=== PATIENT | female | born 1950 | race Native Hawaiian/Other Pacific Islander ===

== ENCOUNTER 2017-09-09 10:42 | Outpatient (CLI) | payer OTHER ==
[~2017-09-09 10:42] MED LIST: ACID REDUCER150 MG PO; ALPR0.5T24 PO; AMLO2.5T PO; ASPIRIN325 M1 OR; DULOXETINE HCL60 MG PO; FERROUS SULF324 MG PO; GABA300C2 PO; LORCET 5-325 MG1 TAB PO; TRAM50TA PO; VESICARE10 MG PO; ZANAFLEX2 MG PO
[2017-09-09 11:10] LABS: POTASSIUM 3.6 mmol/L (3.6-5.2); SODIUM 134 mmol/L (136-145)
== END 2017-09-09 11:45 | disposition home or self-care (01) ==
LOC: LABW 10:42
PROVIDERS: Physical Medicine & Rehabilitation Pain Medicine
DX: Z79.891 Long term (current) use of opiate analgesic (principal)
CPT/HCPCS: 80053

== ENCOUNTER 2018-02-11 09:09 | Outpatient (CLI) | payer OTHER ==
[2018-02-11 09:32] LABS: PLATELET COUNT 566 K/uL (152-353)
[2018-02-11 10:02] LABS: POTASSIUM 2.7 mmol/L (3.6-5.2)
== END 2018-02-11 22:04 | disposition home or self-care (01) ==
LOC: LABW 09:09
PROVIDERS: Internal Medicine
DX: I10 Essential (primary) hypertension (principal)
CPT/HCPCS: 36415; 80053; 80061; 81000; 84443; 85027